=== PATIENT | female | born 1995 | race African-American/Black ===

== ENCOUNTER 2018-09-28 07:45 | Observation (INO) ==
[2018-09-28 06:30] VITALS: BP 137/77
[2018-09-28 06:35] LABS: Hematocrit 43.3 % (35.3-44.9); Mean Corpuscular HGB Conc 33.9 g/dL (31.6-35.5); Mean Corpuscular Hemoglobin 30.1 pg (28.0-33.3); Mean Corpuscular Volume 88.7 fL (83.0-100.0); Mean Platelet Volume 9.8 fL (9.4-12.4); Platelet Count 316 K/mcL (140-400); Red Blood Count 4.88 M/mcL (3.82-4.97); Red Cell Distribution Width 13.2 % (11.5-14.5); White Blood Count 8.1 K/mcL (4.3-11.1)
[2018-09-28 06:37] LABS: Hemoglobin 14.7 g/dL (11.5-15.4)
[~2018-09-28 07:45] MED LIST: *HR* Belladonna Alkaloids/Opium 30 MG RECTAL SUPPOSITORY RC ONE; *HR* FentaNYL (PF) 100 MCG/2 ML VIAL ONE; *HR* Midazolam HCl 2 MG/2 ML VIAL ONE; *HR* Propofol 200 MG/20 ML VIAL IVP ONE; *HR* Succinylcholine 200 MG/10 ML VIAL IVP ONE; Acetaminophen IV 1,000 MG/100 ML INFUS..BTL IVPB ONE; Azithromycin 500 MG in 0.9 % Sodium Chloride 250 ML IVPB ONE; Bupivacaine/EPI 1:200k 0.25%PF 10 ML VIAL INFILT ONE; Famotidine 20 MG/2 ML VIAL IVP ONE; Lidocaine -MPF 1% 2 ML VIAL ONE; Lidocaine -MPF 2% 5 ML VIAL ONE; Methylergonovine 0.2 MG/ML AMPUL IM ONE; Ringers Solution, Lactated 1,000 ML IVC SCH; Ringers Solution, Lactated 1,000 ML ONE; Scopolamine Patch 1.5 MG PATCH.TD72 TD ONE
[2018-09-28] MEDS ORDERED: *HR* OxyCODONE Immed Rel 5 MG TABLET PO PRN (08:27)
[2018-09-28] MEDS ORDERED: Ondansetron 4 MG/2 ML VIAL IVP ONE (08:27)
[2018-09-28] MEDS ORDERED: *HR* Meperidine 25 MG/ML SYRINGE IVP PRN (08:27)
[2018-09-28] MEDS ORDERED: *HR* FentaNYL (PF) 100 MCG/2 ML VIAL IVP PRN (08:27)
[2018-09-28] MEDS ORDERED: Dexamethasone 4 MG/ML VIAL ONE (08:38)
[2018-09-28] MEDS ORDERED: Ondansetron 4 MG/2 ML VIAL ONE (08:38)
[2018-09-28] MEDS ORDERED: *HR* OxyCODONE Immed Rel 5 MG TABLET PO ONE (09:09)
[2018-09-28] MEDS ORDERED: Ibuprofen 800 MG TABLET PO ONE (09:09)
[2018-09-28] MEDS: *HR* Promethazine 25 MG/ML VIAL IVP PRN ×2 (09:27→11:56)
== END 2018-09-28 13:39 | disposition home or self-care (01) ==
LOC: 1NENULAB → EDSTATUS 07:45 → 1NENULAB 15:30
PROVIDERS: ADMIT Obstetrics & Gynecology; ATTEND Obstetrics & Gynecology